=== PATIENT | male | born 1985 | race Two or more races ===

== ENCOUNTER 2024-03-05 15:16 | Emergency (ER) | payer OTHER ==
[~2024-03-05] VITALS: Ht 170.2 cm; Wt 81.6 kg
[2024-03-05] MEDS ORDERED: ZESTRIL10 M1 (15:26)
[2024-03-05] MEDS ORDERED: LAMICTAL25 MG (15:27)
[2024-03-05] MEDS ORDERED: SIMVASTATIN5 MG (15:27)
[2024-03-05 17:39] LABS: HEMATOCRIT 38.2 % (39.0-48.0); HEMOGLOBIN 12.9 g/dL (13-16.00); MEAN CELL VOLUME 83.7 fL (80.0-100.00); MEAN CORPUSCULAR HEMOGLOBIN 28.3 pg (27.00-32.0); MEAN CORPUSCULAR HGB CONC 33.8 g/dl (32.0-36.0); PLATELET COUNT 212 K/uL (150-450); RED BLOOD COUNT 4.56 M/uL (4.00-6.00); RED CELL DISTRIBUTION WIDTH 13.1 % (11.5-14.5)
[2024-03-05 18:18] LABS: PH,URINE 6.5 (5.0-8.0); URINE APPEARANCE Clear; URINE BILIRRUBIN Negative (NEGATIVE); URINE BLOOD Negative; URINE COLOR Yellow; URINE GLUCOSE Negative (NEGATIVE); URINE KETONE Trace (NEGATIVE); URINE LEUKOCYTE Negative; URINE NITRATE Negative; URINE PROTEIN Negative (NEGATIVE)
[2024-03-05 18:20] LABS: INR 1.09; PARTIAL THROMBOPLASTIN TIME 30.6 SECONDS (22.0-34.0); PROTHROMBIN TIME 11.4 SECONDS (9.0-11.5)
[2024-03-05 18:22] LABS: URINE BACTERIA 27.7 uL (0.0-1933); URINE WBC 4.3 uL (0.0-23.2)
[2024-03-05 18:27] LABS: ALBUMIN 3.7 gm/dL (3.4-5.0); BILIRUBIN TOTAL 0.56 mg/dL (0.3-1.2); CALCIUM 9.4 mg/dL (8.5-10.1); CREATININE SERUM 1.22 mg/dL (0.70-1.30); GFR 66.84; POTASSIUM 4.65 mEq/L (3.5-5.1); TOTAL PROTEIN 6.7 gm/dL (6.4-8.2)
[2024-03-05 18:30] LABS: URINE CAST 0.45 uL (0.0-1.40); URINE RBC 0.4 uL (0.0-20.8)
[2024-03-05] MEDS ORDERED: CEFTRIAXONE SODIUM 1,000 MG VIAL IM STA (18:52)
[2024-03-05] MEDS ORDERED: DIPHENHYDRAMINE HCL 50 MG/ML VIAL 1ML IM STA (18:53)
[2024-03-05] MEDS ORDERED: DIPHENHYDRAMINE HCL 50 MG/ML VIAL 1ML ONE (19:27)
[2024-03-05] MEDS ORDERED: CEFTRIAXONE SODIUM 1,000 MG VIAL ONE (19:27)
== END 2024-03-05 19:36 | disposition home or self-care (01) ==
LOC: ER 15:18
PROVIDERS: General Practice
DX: R21 Rash and other nonspecific skin eruption (principal); R59.1 Generalized enlarged lymph nodes; Z20.822 Contact with and (suspected) exposure to COVID-19